=== PATIENT | male | born 1955 | race Caucasian/White ===

== ENCOUNTER → 2020-06-08 08:54 | Outpatient (CLI) | payer MEDICARE, OTHER, SELFPAY ==
[2020-06-08] MEDS: COVID-19 VACC(MODERNA-1)/PF 100 MCG/0.5 ML VIAL IM (09:04)
== END ==
PROVIDERS: Visit Provider Internal Medicine
DX: Z23 Encounter for immunization (principal)
CPT/HCPCS: 0011A; 91301

== ENCOUNTER → 2020-07-04 15:03 | Outpatient (CLI) | payer MEDICARE, OTHER, SELFPAY ==
[2020-07-04] MEDS: COVID-19 VACC #2, MRNA(MOD) 100 MCG/0.5 ML VIAL IM (15:09)
== END ==
PROVIDERS: Visit Provider Internal Medicine
DX: Z23 Encounter for immunization (principal)
CPT/HCPCS: 0012A; 91301

== ENCOUNTER → 2021-04-19 10:42 | Outpatient (CLI) | payer MEDICARE, OTHER, SELFPAY ==
[2021-04-19] MEDS: COVID-19 VACC #3, MRNA(MOD) 50 MCG/0.25 ML VIAL IM (10:53)
== END ==
PROVIDERS: Visit Provider Internal Medicine
DX: Z23 Encounter for immunization (principal)
CPT/HCPCS: 0013A; 91301

== ENCOUNTER → 2023-09-30 06:42 | Outpatient (CLI) | payer MEDICARE, OTHER, SELFPAY ==
[2023-09-30 07:43] LABS: Add Manual Diff / Slide Review NO; Basophils Absolute Auto 0 /uL (0-100); Basophils Percent Auto 0.7 % (0-2); Eosinophils Absolute Auto 200 /uL (0-450); Eosinophils Percent Auto 3.2 % (2-4); Hematocrit 45.2 % (41-53); Hemoglobin 15.6 g/dL (13.5-17.5); Lymphocytes Absolute Auto 1400 /uL (1100-4500); Lymphocytes Percent Auto 26.1 % (25-40); Mean Corpuscular HGB Conc 34.5 % (30-36); Mean Corpuscular Hemoglobin 32.6 PG (26-34); Mean Corpuscular Volume 94.4 fL (80-100); Monocytes Absolute Auto 700 /uL (0-900); Monocytes Percent Auto 11.9 % (3-14); Neutrophils Absolute Auto 3200 /uL (1500-7000); Neutrophils Percent Auto 58.1 % (50-75); Platelet Count 203 X10^3/uL (150-400); Red Blood Cell Count 4.79 X10^6/uL (4.5-5.9); Red Cell Distribution Width 13.4 % (11.6-14.8); White Blood Cell Count 5.5 X10^3/uL (4.5-11.0)
[2023-09-30 07:57] LABS: Alanine Aminotransferase 23 IU/L (<50); Albumin 4.6 g/dL (3.5-5.0); Albumin Globulin Ratio 1.6 (1.0-2.8); Alkaline Phosphatase 60 U/L (38-126); Aspartate Aminotransferase 28 IU/L (17-59); BUN Creatinine Ratio 20.3 (6-22); Bilirubin Total 0.9 mg/dL (0.2-1.3); Blood Urea Nitrogen 27 mg/dL (9-20); Carbon Dioxide 28 mmol/L (22-32); Chloride 106 mmol/L (98-107); Estimated Glomerular Filt Rate 58 mL/min (>60); Globulin 2.9 g/dL (1.7-4.1); Glucose 94 mg/dL (80-110); HEMOLYSIS < 15 (0-50); Potassium 4.5 mmol/L (3.4-5.1); Sodium 137 mmol/L (137-145); Total Protein 7.5 g/dL (6.3-8.2)
[2023-09-30 08:05] LABS: NT-proBNP (BNP-Adult 18+) 52 pg/mL (<125)
[2023-09-30 08:28] LABS: Testosterone 794 ng/dL (71.8-623)
[2023-09-30 08:29] LABS: Estradiol, Total 67.6 pg/mL
[2023-10-02 00:07] LABS: C Peptide 3.7 ng/mL (1.1-4.4); Sex Hormone Binding Globulin 18.9 nmol/L (19.3-76.4)
== END ==
PROVIDERS: Referring Provider Internal Medicine Endocrinology, Diabetes & Metabolism; Visit Provider Internal Medicine Endocrinology, Diabetes & Metabolism
DX: E29.1 Testicular hypofunction (principal); I50.89 Other heart failure; E88.819 Insulin resistance, unspecified
CPT/HCPCS: 36415; 80053; 82670; 83880; 84270; 84403; 84681; 85025